=== PATIENT | female | born 1995 | race Caucasian/White ===

== ENCOUNTER 2019-03-04 20:13 | Inpatient (IN) | payer OTHER ==
[~2019-03-04] VITALS: Ht 162.6 cm; Wt 50.5 kg
[2019-03-04 20:20] VITALS: Ht 162.6 cm; Wt 50.5 kg
--- NOTE | 2019-03-04 22:30 | NUR ---
PT PRESENTS TO THE ED TODAY WITH C/C OF FEVER. PER PT, SHE BEGAN HAVING FEVERS AND NAUSEA/VOMITING ON THURSDAY. PT WAS SEEN AT URGENT CARE AND GIVEN IV HYDRATION. PT WAS THEN TOLD TO GO TO ER, HOWEVER, ER WAS BUSY AND PT ENDED UP GOING HOME. PT REPORTS THAT SHE HAS NOT VOMITED TODAY. REPORTS HER ONLY SYMPTOM AT THIS TIME ARE FEVERS, LAST FEVER AT HOME WAS "102." PT IS AWAKE AND ALERT, RESP E/U, NAD NOTED. MSE COMPLETED BY DR BROOKS.
--- NOTE | 2019-03-04 23:02 | NUR ---
PT MEDICATED PER ORDER, PT VERBALIZED UNDERSTANDING OF MEDICATION PRIOR TO ADMINISTRATION. PT IS AWAKE AND ALERT, RESP E/U, NAD NOTED, FATHER AT BEDSIDE.
[2019-03-04 23:14] LABS: UA SPECIFIC GRAVITY <=1.005 (1.005-1.035); microscopic required? YES; urine erythrocyte TRACE (NEGATIVE)
[2019-03-04 23:15] LABS: PLATELET COUNT 162 x10^3mcL (130-400); RED CELL DISTRIBUTION WIDTH 13.7 % (11.5-14.5)
[2019-03-04 23:29] LABS: CALCIUM 8.4 mg/dL (8.5-10.1); CARBON DIOXIDE 27.3 mmol/L (21-32); CHLORIDE SERUM 98 mmol/L (98-107); CREATININE SERUM 0.7 mg/dL (0.6-1.0); GFR1 > 60 mL/min; GLUCOSE SERUM 118 mg/dL (74-106); SODIUM SERUM 135 mmol/L (136-145)
--- NOTE | 2019-03-04 23:33 | NUR ---
REPORT GIVEN TO JENNIFER VYAS TO ASSUME CARE FOR PT.
[2019-03-04 23:36] LABS: ALKALINE PHOSPHATASE 59 U/L (46-116); ALT/SGPT 22 U/L (14-59); AST/SGOT 24 U/L (15-37); BILIRUBIN TOTAL 1.4 mg/dL (0.20-1.00); TOTAL PROTEIN, SERUM 6.4 g/dL (6.4-8.2)
[2019-03-04 23:59] LABS: BAND NEUTROPHIL 2 % (0-10); METAMYELOCTE 1 % (0-2); MONOCYTE 9 % (0-7); SEGMENTED NEUTROPHILS 83 % (37-75)
[2019-03-05] LABS: PLATELET MORPHOLOGY PLATELETS NORMAL; rbc morphology (normal/abnorm) NORMAL (NORMAL)
--- NOTE | 2019-03-05 02:00 | NUR ---
NEW ORDER FOR ROCEPHIN IV NOTED. PT HAS POTASSIUM STILL INFUSING WITH APPROXIMATELY 20-30 MINUTES LEFT OF INFUSION. ATTEMPTED TO ESTABLISH ANOTHER IV ACCESS, UNSUCCESSFUL, PRIMARY RN ASAEL MADE AWARE.
--- NOTE | 2019-03-05 02:38 | NUR ---
PT MEDICATED PER ORDER. SEE EMAR.
--- NOTE | 2019-03-05 02:41 | NUR ---
PT RESTING IN POSITION OF COMFORT. DENIES HAVING PAIN AT THIS TIME.
--- NOTE | 2019-03-05 02:52 | NUR ---
REPORT GIVEN TO SHADY RODRIGUEZ UPSTAIR ON MED SURG FLOOR. PT BEING ADMITTED FOR FURTHER CARE ON MED SURG FLOOR TO ROOM 258B.
--- NOTE | 2019-03-05 03:07 | NUR ---
PT WHEELED UPSTAIRS BY MYSELF TO MED SURG FLOOR ROOM 258B WITH NO INCIDENCE
--- NOTE | 2019-03-05 03:08 | NUR ---
PATIENT ADMITTED FROM ER DUE TO COMPLAIN OF FEVER, BODYACHE, AND VOMITING. PATIENT AWAKE, ALER, ORIENTED X4. RESPIRATION EVEN AND UNLABORED, ON ROOM AIR. IV SITE TO LEFT ANTECUBITAL AREA PATENT AND INTACT. C/O CONSTIPATION. LBM- 3 DAYS AGO. VOIDING FREELY WITHOUT DIFFICULTY. AMBULATORY. SKIN INTACT. TATTOO NOTED TO ARMS/LEGS, PIERCING TO NOSE. DENIES PAIN AT THIS TIME. WILL CONTINUE TO MONITOR.
[2019-03-05 03:09] VITALS: BP 106/57
[2019-03-05 03:15] VITALS: BP 106/57
--- NOTE | 2019-03-05 06:01 | NUR ---
PATIENT SLEEPING IN BED. APPEARS COMFORTABLE. RESPIRATION EVEN AND UNLABORED, ON ROOM AIR. IV SITE TO LEFT ANTECUBITAL AREA PATENT AND INTACT. ASSISTED WITH NEEDS. SAFETY OBSERVED. PLACED BED IN THE LOWEST POSITION. PLACED CALL LIGHT WITHIN REACH AT ALL TIMES.
[2019-03-05 06:24] LABS: BASOPHIL % 0.1 % (0-2); PLATELET COUNT 137 x10^3mcL (130-400); RED CELL DISTRIBUTION WIDTH 13.9 % (11.5-14.5)
--- NOTE | 2019-03-05 06:50 | NUR ---
PATIENT COMPLAINED OF BACK PAIN, PS 5/10. MEDICATED WITH NORCO 7.5/325 MG PO ORDERED. WILL CONTINUE TO MONITOR.
--- NOTE | 2019-03-05 07:20 | NUR ---
RECEIVED PATIENT FROM FORMING OPERATOR NURSE. PATIENT IS AWAKE, ALERT AND ORIENTED. ON ROOM AIR, RESP E/U, DENIES SOB. DENIES PAIN AND DISCOMFORT AT THIS ITME. IV NOTED TO LAC, IVF INFUSING WELL ORDERED, NO S/S ERYTHEMA AT SITE. CALL LIGHT WITHIN EASY REACH. WILL CONTINUE PLAN OF CARE.
[2019-03-05 07:40] VITALS: BP 113/61
[2019-03-05 07:57] LABS: CALCIUM 7.9 mg/dL (8.5-10.1); CARBON DIOXIDE 25.7 mmol/L (21-32); CHLORIDE SERUM 105 mmol/L (98-107); CREATININE SERUM 0.7 mg/dL (0.6-1.0); GFR1 > 60 mL/min; GLUCOSE SERUM 101 mg/dL (74-106); POTASSIUM SERUM 3.7 mmol/L (3.5-5.1); SODIUM SERUM 140 mmol/L (136-145)
[2019-03-05 08:55] LABS: AMPHETAMINE QUAL UR NONE DETECTED (See below)
--- NOTE | 2019-03-05 10:22 | NUR ---
SPOKE WITH RADIOLOGY REGARDING CXR ORDER. NEED ORDER TO BE CLARIFIED BY DR DELATORRE. DR DELATORRE PAGED AT THIS TIME. PENDING CALL BACK.
[2019-03-05 17:05] VITALS: BP 114/63
--- NOTE | 2019-03-05 17:57 | NUR ---
PATIENT MEDICATED AT THIS TIME FOR LEFT SIDED FLANK PAIN. MEDICATED WITH NORCO PER EMAR. WILL CONTINUE TO MONITOR.
--- NOTE | 2019-03-05 18:47 | NUR ---
PATIENT IN NO ACUTE DISTRESS. ON ROOM AIR, RESP E/U, DENIES SOB. CALL LIGHT WITHIN EASY REACH. WILL ENDORSE TO MANAGER PACU NURSE.
--- NOTE | 2019-03-05 19:48 | NUR ---
RECEIVED PT FROM PREVIOUS SHIFT. AAO. ABLE TO MAKE NEEDS KNOWN. MEDSURG. DENIES HEADACHE/DIZZINESS. BREATHING E/U ON RA. NO S/S ACUTE DISTRESS. DENIES PAIN AT THIS TIME, DENIES N/V. IV SITE CDI, NO ERYTHEMA OR EDEMA NOTED. CALL LIGHT WITHIN REACH. SAFETY MEASURES IN PLACE. WILL CONTINUE TO MONITOR.
[2019-03-05 20:11] VITALS: BP 99/56
--- NOTE | 2019-03-05 23:47 | NUR ---
MEDICATED PER EMAR FOR 5/10 BACK PAIN. NO S/S ACUTE DISTRESS. BREATHING E/U. CALL LIGHT WITHIN REACH. SAFETY MEASURES IN PLACE. WILL CONTINUE TO MONITOR.
[2019-03-06 05:22] VITALS: BP 119/71
--- NOTE | 2019-03-06 05:28 | NUR ---
PT MEDICATED PER EMAR FOR 6/10 BACK PAIN.
[2019-03-06 06:50] LABS: CALCIUM 8.2 mg/dL (8.5-10.1); CARBON DIOXIDE 22.6 mmol/L (21-32); CHLORIDE SERUM 104 mmol/L (98-107); CREATININE SERUM 0.7 mg/dL (0.6-1.0); GFR1 > 60 mL/min; GLUCOSE SERUM 98 mg/dL (74-106); MAGNESIUM 1.8 mg/dL (1.8-2.4); PHOSPHOROUS 2.7 mg/dL (2.5-4.9); POTASSIUM SERUM 3.6 mmol/L (3.5-5.1); SODIUM SERUM 138 mmol/L (136-145)
[2019-03-06 07:10] LABS: BASOPHIL % 0.2 % (0-2); PLATELET COUNT 142 x10^3mcL (130-400); RED CELL DISTRIBUTION WIDTH 13.8 % (11.5-14.5)
--- NOTE | 2019-03-06 07:15 | NUR ---
SEEN IN BED AAOX4. DENIES LEFT FLANK PAIN AT THIS TIME STATED JUST RECEIVED PAIN MEDICINE. BREATHING E/U ON ROOM AIR. STATED VOIDS FREELY. BRP. IVF NS TO LAC INFUSING WELL AT 100ML/HR. CALL LIGHT PLACED WITHIN EASY REACH, SIDERAILS UP X2.
[2019-03-06 08:40] VITALS: BP 113/72
--- NOTE | 2019-03-06 10:52 | NUR ---
STATED PAIN TO LEFT FLANK AREA 5/10 ON PAIN SCALE. NORCO 1 TAB PO GIVEN. WILL CONTINUE TO MONITOR.
--- NOTE | 2019-03-06 11:30 | NUR ---
DOCTOR RAYO AND MEDICAL TEAM AT BEDSIDE FOR AM ROUND. PATIENT MADE AWARE OF CURRENT CONDITION AND DISCHARGE HOME PLAN.
[2019-03-06] MEDS ORDERED: LEVAQUIN750 MG PO (13:17)
[2019-03-06 13:32] VITALS: BP 113/72
--- NOTE | 2019-03-06 14:00 | NUR ---
DISCHARGE INSTRUCTION AND PRESCRITION FOR LEVAQUIN AND NORCO GIVEN TO PATIENT WHO IS AWAKE, ALERT, ORIENTED X4. PATIENT'S FATHER AND SIGNIFICANT OTHER AT BEDSIDE. S/L TO LAC REMOVED WITH CATHETER INTACT, DRSG APPLIED. DENIES DISCOMFORT AT THIS TIME.
--- NOTE | 2019-03-06 14:14 | NUR ---
BROUGHT VIA WHEELCHAIR ACCOMPANIED FATHER TO LOBBY. CONDITION STABLE.
== END 2019-03-06 14:10 | disposition home or self-care (01) | DRG 690 ==
LOC: ED 20:13 → MU 03-05 01:21
PROVIDERS: Emergency Medicine; ADMIT General Practice
DX: N10 Acute pyelonephritis (principal); E87.1 Hypo-osmolality and hyponatremia; E44.0 Moderate protein-calorie malnutrition; Z68.1 Body mass index [BMI] 19.9 or less, adult; E87.6 Hypokalemia; F19.10 Other psychoactive substance abuse, uncomplicated; Z88.0 Allergy status to penicillin
CPT/HCPCS: G0378; J0696; J1885; J1956; J3480; J7030; J7050; J7060